=== PATIENT | male | born 1930 | race Two or more races ===

== ENCOUNTER 2018-09-27 17:05 | Emergency (ER) | payer OTHER ==
[~2018-09-27] VITALS: Ht 177.8 cm; Wt 75.9 kg
--- NOTE | 2018-09-27 18:16 | NUR ---
PT IN CT NOW. DAUGHTER IN ROOM.
--- NOTE | 2018-09-27 18:38 | NUR ---
PT BACK FROM CT
[2018-09-27 18:48] VITALS: BP 168/76
--- NOTE | 2018-09-27 18:49 | NUR ---
PT BACK FROM CT. PT STATES HE FEELS GOOD. PT CURRENTLY PAIN FREE. RESPS EVEN AND UNLABORED. PT AXOX3 AND MOVING ALL EXTREMITIES.
[2018-09-27] MEDS ORDERED: DIPH,PERTUSS(ACELL),TET VAC/PF 0.5 ML IM-VACC ONE ×2 (19:27→19:30)
[2018-09-27] MEDS ORDERED: BACITRACIN ZINC OINT 500U/GM, 0.9 GM ONE (19:31)
--- NOTE | 2018-09-27 19:41 | NUR ---
CARE ASSUMED FOR DC. ER TECHS AT BEDSIDE CLEANING AND DRESSING WOUNDS. PT AND FAMILY MEMBER ACKNOWLEDGE UNDERSTANDING OF INSTRUCTIONS. PT AND FAMILY MEMBER TO BE ESCORTED TO DC DESK WHEN DRESSING COMPLETED.
== END 2018-09-27 19:48 | disposition home or self-care (01) ==
LOC: ED 19:46
DX: S06.9X1A Unspecified intracranial injury with loss of consciousness of 30 minutes or less, initial encounter (principal); S00.81XA Abrasion of other part of head, initial encounter; S50.312A Abrasion of left elbow, initial encounter; I10 Essential (primary) hypertension; W01.0XXA Fall on same level from slipping, tripping and stumbling without subsequent striking against object, initial encounter; Y93.89 Activity, other specified; Y92.89 Other specified places as the place of occurrence of the external cause; Y99.8 Other external cause status
CPT/HCPCS: 70450; 71045; 90471; 90715; 99284